=== PATIENT | male | born 1950 | race Caucasian/White ===

== ENCOUNTER 2017-01-08 12:03 | Emergency (ER) | payer OTHER, MEDICARE ==
[2017-01-08 12:25] VITALS: BMI 25.8
--- NOTE | 2017-01-08 13:20 | PDOC ---
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 HE states that he noticed all these symptoms begin around the same time ago without inciting event. He has been to his PCP a few weeks ago and has been prescribed a steroid taper for his COPD. He describes the chest pain as a 6-10 non radiating left sided blackman worse with cough but not worse with deep inspiration and does not co-present with SOB , diaphoresis, nausea, or vomiting. He had a non-ischemic dobutamine stress on . 01/08/17 13:53 Past History - Past Medical History Allergies/Adverse Reactions: Allergies Allergy/AdvReac Type Severity Reaction Status Date / Time No Known Allergies Allergy Verified 01/08/17 12:20 Home Medications: Ambulatory Orders Aspirin [ASA -] 81 mg PO DAILY 01/08/17 Atorvastatin Ca [Lipitor] 40 mg PO HS 01/08/17 Ferrous Sulfate 325 mg PO BID 01/08/17 Ipratropium/Albuterol Sulfate [Combivent Respimat Inhal [place]] 4 gm IH BID 01/08 Loratadine 10 mg PO DAILY 01/08/17 Methadone [Dolophine -] 185 mg PO DAILY 01/08/17 Methimazole 5 mg PO DAILY 01/08/17 Montelukast Na [Singulair -] 10 mg PO HS 01/08/17 Multivit-Min/FA/Lycopen/Lutein [Centrum Silver Tablet] 1 each PO DAILY 01/08/17 Omeprazole 20 mg PO DAILY 01/08/17 Prednisone 5 mg PO DAILY 01/08/17 Thyroid Disease: Yes (OVER-ACTIVE) - Psycho/Social/Smoking Cessation Hx Suicidal Ideation: No Smoking History: Current every day smoker Have you smoked in the past 12 months: Yes Number of Cigarettes Smoked Daily: 20 Information on smoking cessation initiated: No Review of Systems - Review of Systems Constitutional: Yes: Weakness. No: Chills, Diaphoresis, Fever, Loss of Appetite , Night Sweats HEENTM: Yes: Blurred Vision. No: Eye Pain, Double Vision Respiratory: Yes: Cough, Shortness of Breath, SOB with Exertion. No: Orthopnea , Wheezing, Productive cough, Hemoptysis Cardiac (ROS): Yes: Chest Pain, Lightheadedness. No: Edema ABD/GI: No: Constipated, Diarrhea, Nausea, Vomiting : No: Dysuria, Discharge, Frequency Musculoskeletal: Yes: Muscle Weakness. No: Back Pain, Joint Pain, Joint Swelling, Muscle Pain *Physical Exam - Vital Signs Last Vital Signs Temp Pulse Resp BP Pulse Ox 98 F 81 18 110/79 95 01/08/17 12:21 01/08/17 12:57 01/08/17 12:57 01/08/17 12:57 01/08/17 12:57 - Physical Exam General Appearance: Yes: Nourished, Appropriately Dressed, Other (Appears overall slightly lethargic and slightly disarthric). No: Apparent Distress HEENT: positive: EOMI, OVIDIO (Eyes low but able to open per neuro exam below.), Normal ENT Inspection, Pharynx Normal. negative: Normal Voice (Some speech difficulty) Neck: positive: Trachea midline, Normal Thyroid, Supple. negative: Tender, Rigid Respiratory/Chest: positive: Lungs Clear, Other (Slow respiratory rate at 8-11 breaths per minute). negative: Chest Tender, Normal Breath Sounds (Delayed expiratory phase with some transmitted upper airway sounds. ), Respiratory Distress, Accessory Muscle Use Cardiovascular: positive: Regular Rhythm, Regular Rate, S1, S2. negative: Edema , JVD, Murmur, Bradycardia, Tachycardia Gastrointestinal/Abdominal: positive: Normal Bowel Sounds, Flat, Soft, Pulsatile Mass. negative: Tender, Organomegaly Integumentary: positive: Normal Color, Dry, Warm, Other (No rashes or bug bites on skin) Neurologic: positive: clinical partner II-XII NML intact, Fully Oriented, Alert (somnolent but very easily arrousable to voice and touch). negative: Motor Strength 5/5 ( Bilateral lower extremity weakness 3/5 with 5/5 upper extremity strength and lack of focal defictis.) ED Treatment Course - LABORATORY CBC & Chemistry Diagram: 01/08/17 14:15 01/08/17 14:15 Medical Decision Making - Medical Decision Making 66 year old male with nonspecific general complaints for the past three weeks including central burning non-radiating chest pain with a clean stress test on . His EKG demonstrated some left fascicular block that is most likely old given read of inferior fixed wall motion abnormalities on previous stress but no signs of active ischemia on this visit on either of the two EKGs taken one hour apart. Furthermore VSS, all labs WNL, with negative Troponin and chest pain resolved so will send home with follow up tomorrow with Dr. Carmona. I beleive that his overall lethargy is caused by his large daily methadone dose. Less likely is guillane-barre or ixodotoxin Possibly rheumatolgic or neurodegenerative disorder because of lack of history of hyperthyroidism and slow onset but workup is deferred to outpatient. Per phone call with Dr. Carmona, he is OK with seeing patient tomorrow in clinic as long as no acute event here in the ED. 01/08/17 15:13 01/08/17 15:23 *DC/Admit/Observation/Transfer Diagnosis at time of Disposition: Chest pain - Discharge Dispostion Disposition: HOME Condition at time of disposition: Improved Admit: No - Referrals Referrals: Mainor Carmona MD [Primary Care Provider] - - Patient Instructions Printed Discharge Instructions: DI for Chest Pain Additional Instructions: You were seen for chest pain and many other symptoms. We believe that this is most likely all due to a mixture of your COPD and large methadone dosage. We suggest that you see your PCP tomorrow and discuss your problems with him. We also believe that you should discuss lowering your methadone dose with your PCP and methadone clinic. Please return to the ED if you notice severe chest pain, shortness of breath, nausea, vomiting, diarrhea, or other new symptoms. - Attestations Physician Attestion: 01/08/17 15:30 I, Dr. Albert Fan, attest that this document has been prepared under my direction and personally reviewed by me in its entirety. I further attest, that it accurately reflects all work, treatment, procedures and medical decision -making performed by me.
[2017-01-08 14:28] LABS: EOSINOPHIL 1.2 % (0-4.5); MEAN CELL VOLUME 93.9 fl (80-96); MEAN PLT VOLUME 7.4 fl (7.5-11.1); NEUTROPHILS 61.4 % (42.8-82.8); PLATELET COUNT 274 K/MM3 (134-434); RDW 18.1 % (11.9-15.9); WHITE BLOOD COUNT 8.5 K/mm3 (4.0-10.0)
[2017-01-08 14:53] LABS: ALBUMIN 3.5 g/dl (3.4-5.0); ALK PHOS 94 U/L (45-117); ANION GAP 10 (8-16); BILIRUBIN,TOTAL 0.6 mg/dL (0.2-1.0); CALCIUM 9.5 mg/dL (8.5-10.1); CO2 31 mmol/L (21-32); CREATININE 0.8 mg/dL (0.7-1.3); GLUCOSE,RANDOM 81 mg/dL (74-106); SGOT/AST 16 U/L (15-37); SGPT/ALT 20 U/L (12-78); TOT PROT 7.1 g/dl (6.4-8.2)
[2017-01-08 14:55] LABS: TROPONIN I < 0.02 ng/ml (0.00-0.05)
--- NOTE | 2017-01-08 15:02 | PDOC ---
Attending Attestation - Resident Resident Name: Albert Fan - ED Attending Attestation I have performed the following: I have examined & evaluated the patient, The case was reviewed & discussed with the resident, I agree w/resident's findings & plan, Exceptions are as noted - HPI HPI: 01/08/17 15:00 Agree with the resident's HPI as documented in the electronic medical record. - Physicial Exam PE: 01/08/17 15:00 Agree with the resident's physical examination as documented in the electronic medical record. - Medical Decision Making 01/08/17 15:00 66-year-old male with history of GERD, COPD, hyperlipidemia and asked IVDA on methadone presents the emergency Department with complaints of burning midsternal chest pain that has resolved. The patient has a history of chest pain in the past and had a normal perfusion scan last year. Differential diagnosis includes but is not limited to: GERD, atypical presentation of ACS, COPD, pneumothorax, pneumonia. Plan: 1. EKG 2. Chest x-ray 3. Labs 4. Observe and reevaluate
--- NOTE | 2017-01-08 15:38 | EKG ---
Test Reason : Blood Pressure : / mmHG Vent. Rate : 068 BPM Atrial Rate : 068 BPM P-R Int : 144 ms QRS Dur : 084 ms QT Int : 416 ms P-R-T Axes : 038 -65 017 degrees QTc Int : 442 ms NORMAL SINUS RHYTHM LEFT ANTERIOR FASCICULAR BLOCK ABNORMAL ECG WHEN COMPARED WITH ECG OF 08-JAN-2017 12:12, NONSPECIFIC T WAVE ABNORMALITY NO LONGER EVIDENT IN LATERAL LEADS Confirmed by CRISTINA ROSALES, JESSICA ([id number]) on 01/08/2017 3:38:02 PM Referred By: Confirmed By:JESSICA EVANS MD
--- NOTE | 2017-01-08 15:38 | EKG ---
Test Reason : Blood Pressure : / mmHG Vent. Rate : 095 BPM Atrial Rate : 095 BPM P-R Int : 140 ms QRS Dur : 082 ms QT Int : 386 ms P-R-T Axes : 056 -72 035 degrees QTc Int : 485 ms NORMAL SINUS RHYTHM BIATRIAL ENLARGEMENT LEFT ANTERIOR FASCICULAR BLOCK NONSPECIFIC T WAVE ABNORMALITY ABNORMAL ECG WHEN COMPARED WITH ECG OF 25-JUL-2007 02:47, OR INTERVAL HAS INCREASED QT HAS LENGTHENED Confirmed by JESSICA EVANS MD ([id number]) on 01/08/2017 3:37:51 PM Referred By: Confirmed By:JESSICA EVANS MD
[2017-01-08 16:12] VITALS: BP 123/74; PULSE 89; TEMP 98.4
== END 2017-01-08 16:13 | disposition home or self-care (01) ==
LOC: JER 12:03
DX: R07.89 Other chest pain (principal); E78.5 Hyperlipidemia, unspecified; K21.9 Gastro-esophageal reflux disease without esophagitis; J44.9 Chronic obstructive pulmonary disease, unspecified; E05.80 Other thyrotoxicosis without thyrotoxic crisis or storm; F11.20 Opioid dependence, uncomplicated
CPT/HCPCS: 36415; 71010-TC; 80053; 82550; 84484; 85025; 93005; 93010; 99284-25

== ENCOUNTER 2017-03-18 10:34 | Inpatient (IN) | payer OTHER, BC, MEDICARE ==
[2017-03-18 10:49] VITALS: BMI 25.8
--- NOTE | 2017-03-18 11:09 | PDOC ---
History of Present Illness - General Chief Complaint: Weakness Stated Complaint: Weakness Time Seen by Provider: 03/18/17 10:56 - History of Present Illness Initial Comments: 03/18/17 11:39 Patient is a 66-year-old male with past medical history of HTN, HLD, COPD, GERD who presents to the emergency department today complaining of dizziness, weakness, headache. Patient states that his symptoms started approximately 1 week ago. He has progressively gotten weaker over the past week. He states that he can no longer walk because of the weakness and that he lives alone. He states that he feels like his vision has changed. Denies fevers, chills ROM a cough, chest pain, shortness of breath, nausea, vomiting, diarrhea, frequency, urgency, dysuria. NIH Stroke Scale - Last Known Well Date/Time & Onset Date Last Known Well: 03/13/17 Time Last Known Well: 08:00 - Initial Evaluation Level of consciousness: Alert Ask patient the month and their age: Answers both correctly Ask patient to open & close eyes; make fist and let go: Obeys both correctly Best gaze (horizontal eye movement): Normal Visual field testing: No visual field loss Facial paresis (Show teeth/raise eyebrows/close eyes tight): Normal symmetrical movement Motor Function: Left Arm: Normal Motor Function: Right Arm: Normal (extends arm 90 (or 45) degrees for 10 seconds without drift Motor Function: Left Leg: Normal (extends leg 30 degrees for 5 seconds without drift) Motor Function: Right Leg: Normal (extends leg 30 degrees for 5 seconds without drift) Limb Ataxia: No ataxia Sensory(Use pinprick test arms,legs,trunk,face/side to side): Normal Best language (Describe picture, name items, read sentences): No Aphasia Dysarthria (read several words): Mild to moderate slurring of words Extinction and Inattention: No abnormality - Total Score NIH Stroke Scale Score: 1 Past History - Travel Traveled outside of the country in the last 30 days: No Close contact w/someone who was outside of country & ill: No - Past Medical History Allergies/Adverse Reactions: Allergies Allergy/AdvReac Type Severity Reaction Status Date / Time No Known Allergies Allergy Verified 03/18/17 10:44 Home Medications: Ambulatory Orders Aspirin [ASA -] 81 mg PO DAILY 01/08/17 Atorvastatin Ca [Lipitor] 40 mg PO HS 01/08/17 Loratadine 10 mg PO DAILY 01/08/17 Methadone [Dolophine -] 165 mg PO DAILY 01/08/17 Methimazole 5 mg PO DAILY 01/08/17 Montelukast Na [Singulair -] 10 mg PO HS 01/08/17 Omeprazole 20 mg PO DAILY 01/08/17 Thyroid Disease: Yes (OVER-ACTIVE) - Suicide/Smoking/Psychosocial Hx Smoking History: Current every day smoker Have you smoked in the past 12 months: Yes Number of Cigarettes Smoked Daily: 10 Information on smoking cessation initiated: No Hx Alcohol Use: No Drug/Substance Use Hx: No Review of Systems - Review of Systems Able to Perform ROS?: Yes Comments:: 03/18/17 11:42 CONSTITUTIONAL: Present: generalized weakness Absent: fever, chills, diaphoresis, malaise, loss of appetite HEENT: Absent: rhinorrhea, nasal congestion, throat pain, throat swelling, difficulty swallowing, mouth swelling, ear pain, eye pain, visual Changes CARDIOVASCULAR: Absent: chest pain, loss of consciousness, palpitations, irregular heart rate, peripheral edema RESPIRATORY: Absent: cough, shortness of breath, dyspnea with exertion, orthopnea, wheezing, stridor, hemoptysis GASTROINTESTINAL: Absent: abdominal pain, abdominal distension, nausea, vomiting, diarrhea, constipation, melena, hematochezia GENITOURINARY: Absent: dysuria, frequency, urgency, hesitancy, hematuria, flank pain, genital pain MUSCULOSKELETAL: Absent: myalgia, arthralgia, joint swelling SKIN: Absent: rash, itching, pallor HEMATOLOGIC/IMMUNOLOGIC: Absent: easy bleeding, easy bruising, lymphadenopathy, frequent infections ENDOCRINE: Absent: unexplained weight gain, unexplained weight loss, heat intolerance, cold intolerance NEUROLOGIC: Present: headache, unsteady gait, dizziness Absent:focal weakness or paresthesias, seizure, mental status changes, bladder or bowel incontinence PSYCHIATRIC: Absent: anxiety, depression, suicidal or homicidal ideation, hallucinations. Is the patient limited Mexican proficient: No *Physical Exam - Vital Signs Last Vital Signs Temp Pulse Resp BP Pulse Ox 98.0 F 79 20 125/86 94 L 03/18/17 10:44 03/18/17 10:44 03/18/17 10:44 03/18/17 10:44 03/18/17 10:44 - Physical Exam Comments: 03/18/17 11:46 GENERAL: Well developed, well nourished. Awake and alert. mild distress, too weak to sit up in the bed HEENT: Normocephalic, atraumatic. PERRLA, EOMI. No conjunctival pallor. Sclera are non- icteric. Moist mucous membranes. Oropharynx is clear. NECK: Supple. Full ROM. No JVD. Carotid pulses 2+ and symmetric, without bruits. No thyromegaly. No lymphadenopathy. CARDIOVASCULAR: Regular rate and rhythm. No murmurs, rubs, or gallops. Distal pulses are 2+ and symmetric. PULMONARY: No evidence of respiratory distress. Lungs with wheezing bilaterally. No rales or rhonchi. Fair aeration to the bases ABDOMINAL: Soft. Non-tender. Non-distended. No rebound or guarding. No organomegaly. Normoactive bowel sounds. MUSCULOSKELETAL Normal range of motion at all joints. No bony deformities or tenderness. No CVA tenderness. EXTREMITIES: No cyanosis. No clubbing. No edema. No calf tenderness. SKIN: Warm and dry. Normal capillary refill. No rashes. No jaundice. NEUROLOGICAL: Alert, awake, appropriate. Cranial nerves 2-12 intact. No deficits to light touch and temperature in face, upper extremities and lower extremities. No motor deficits in the in face, upper extremities and lower extremities. Normoreflexic in the upper and lower extremities. Slurred speech. Toes are down- going bilaterally. Gait is unable to be observed as pt. states he is too weak to walk. PSYCHIATRIC: Cooperative. Good eye contact. Appropriate mood and affect. ED Treatment Course - LABORATORY CBC & Chemistry Diagram: 03/18/17 11:17 03/18/17 11:17 Medical Decision Making - Medical Decision Making 03/18/17 11:51 Patient is a 66-year-old male with past medical history of HTN, HLD, COPD, GERD who presents to the emergency department today complaining of dizziness, weakness, headache for one week. Differential diagnosis include stroke, ACS, pneumonia, COPD exacerbation, sepsis. Given patient's smaller and generalized overall weakness with headache and reported visual changes higher suspicion for stroke. We'll obtain CT of the head. Patient is well outside the window for TPA as he is had the symptoms for over a week. 1.CBC, CMP, PT/INR, cardiac labs, UA, UC, BMP, mag, Roberts, thyroid 2.head CT, chest x-ray, EKG 3.IV fluids 4.reevaluate 03/18/17 12:[address] shows: Focal likely indeterminate infarct in the right cerebellum, inferiorly with question of infarct in the right occipital lobe which further evaluation with MRI of the brain is recommended. Focal encephalomalacia/infarct in the right cerebellum, superiorly with an old lacunar infarct in the right basal ganglia, anteriorly. Most likely a acute/subacute infarct of the right occipital lobe. We'll consult with Dr. Jones patient's PCP for admission. Lab work is unremarkable. There is no leukocytosis, electrolytes within normal limits. Troponin is less than 0.02. Chest x-ray shows potential lymph nodes in the right hilar region of the chest x -ray. Radiology is recommending chest x-ray at this time for further evaluation. EKG remains unchanged from old. Anterior fascicular block with a rate of 69 bpm intervals are normal no acute ST-T wave changes. 03/18/17 13:[address] Jones. We will admit the patient for CVA. Dr. Paulson. Waiting for call back from Dr. Paulson. Consult with with Dr. Torres neurology he is aware of the patient. Will place orders for MRA of the brain and neck to further evaluate the stroke. 03/18/17 14:12 second patient page to Dr. Paulson 03/18/17 14:[address] Paulson. Case was discussed and he accepts patient for admission to the stroke floor. *DC/Admit/Observation/Transfer Diagnosis at time of Disposition: CVA (cerebral vascular accident) Qualifiers: CVA mechanism: unspecified Qualified Code(s): I63.9 - Cerebral infarction, unspecified - Discharge Dispostion Disposition: HOME Condition at time of disposition: Good Admit: Yes
[2017-03-18] MEDS ORDERED: SODIUM CHLORIDE 1,000 ML IV STA (11:10)
[2017-03-18 11:47] LABS: INR 1.07 (0.82-1.09); PROTHROMBIN TIME (PATIENT) 11.8 SEC (9.98-11.88)
[2017-03-18 12:00] LABS: ALBUMIN 3.2 g/dl (3.4-5.0); ANION GAP 4 (8-16); BILIRUBIN,TOTAL 0.7 mg/dL (0.2-1.0); CALCIUM 9.1 mg/dL (8.5-10.1); CO2 30 mmol/L (21-32); CREATININE 0.7 mg/dL (0.7-1.3); GLUCOSE,RANDOM 92 mg/dL (74-106); MAGNESIUM 2.2 mg/dL (1.8-2.4); SGOT/AST 14 U/L (15-37); SGPT/ALT 19 U/L (12-78); TOT PROT 6.8 g/dl (6.4-8.2)
[2017-03-18 12:01] LABS: PHOSPHOROUS 3.6 mg/dL (2.5-4.9)
[2017-03-18 12:03] LABS: ALK PHOS 96 U/L (45-117)
[2017-03-18 12:10] LABS: THYROID STIMULATING HORMONE 0.7 uIU/ml (0.358-3.74)
[2017-03-18 12:16] LABS: CPK 50 IU/L (39-308); TROPONIN I < 0.02 ng/ml (0.00-0.05)
--- NOTE | 2017-03-18 12:39 | PDOC ---
*Physical Exam - Vital Signs Last Vital Signs Temp Pulse Resp BP Pulse Ox 98.0 F 70 20 128/77 95 03/18/17 10:44 03/18/17 11:36 03/18/17 10:44 03/18/17 11:36 03/18/17 10:56 ED Treatment Course - LABORATORY CBC & Chemistry Diagram: 03/18/17 11:17 03/18/17 11:17 - ADDITIONAL ORDERS Additional order review: Laboratory Results 03/18/17 03/18/17 03/18/17 11:17 11:17 11:17 PT with INR INR Sodium 138 Potassium 4.1 Chloride 104 Carbon Dioxide 30 Anion Gap 4 L BUN 10 D Creatinine 0.7 Creat Clearance w eGFR > 60 Random Glucose 92 Calcium 9.1 Phosphorus 3.6 Magnesium 2.2 Total Bilirubin 0.7 AST 14 L ALT 19 Alkaline Phosphatase 96 Creatine Kinase Cancelled 50 Troponin I Cancelled < 0.02 B-Natriuretic Peptide 64.41 Total Protein 6.8 Albumin 3.2 L TSH 0.70 03/18/17 11:17 PT with INR 11.80 INR 1.07 Sodium Potassium Chloride Carbon Dioxide Anion Gap BUN Creatinine Creat Clearance w eGFR Random Glucose Calcium Phosphorus Magnesium Total Bilirubin AST ALT Alkaline Phosphatase Creatine Kinase Troponin I B-Natriuretic Peptide Total Protein Albumin TSH - Medications Given in the ED: ED Medications Discontinued Medications Generic Name Dose Route Start Last Admin Trade Name Freq PRN Reason Stop Dose Admin Sodium Chloride 1,000 mls @ 1,000 mls/hr 03/18/17 11:10 03/18/17 11:31 Normal Saline - IV 03/18/17 12:09 1,000 mls/hr ASDIR STA Administration Medical Decision Making - Medical Decision Making 03/18/17 12:39 Pt seen by the Advanced Practice Provider under my direct supervision Ancillary studies reviewed I agree with plan as outlined by the Advanced Practice Provider
[2017-03-18 12:52] LABS: BASOPHIL 1.1 % (0-2.0); EOSINOPHIL 4.6 % (0-4.5); MCH 31.5 pg (25.7-33.7); MCHC 33.3 g/dl (32.0-35.9); MEAN CELL VOLUME 94.6 fl (80-96); MEAN PLT VOLUME 7.8 fl (7.5-11.1); NEUTROPHILS 58.1 % (42.8-82.8); PLATELET COUNT 253 K/MM3 (134-434); WHITE BLOOD COUNT 7.5 K/mm3 (4.0-10.0)
--- NOTE | 2017-03-18 13:04 | EKG ---
Test Reason : Blood Pressure : / mmHG Vent. Rate : 069 BPM Atrial Rate : 069 BPM P-R Int : 148 ms QRS Dur : 084 ms QT Int : 418 ms P-R-T Axes : 034 -56 008 degrees QTc Int : 447 ms POOR DATA QUALITY, INTERPRETATION MAY BE ADVERSELY AFFECTED NORMAL SINUS RHYTHM LOW VOLTAGE QRS LEFT ANTERIOR FASCICULAR BLOCK NONSPECIFIC T WAVE ABNORMALITY ABNORMAL ECG WHEN COMPARED WITH ECG OF 08-JAN-2017 14:09, NO SIGNIFICANT CHANGE WAS FOUND Confirmed by KEYANNA DENIS MD ([id number]) on 03/18/2017 1:03:59 PM Referred By: Confirmed By:KEYANNA DENIS MD
[2017-03-18] MEDS ORDERED: FLU VACCINE QUAD 60 MCG/0.5 ML (MDV 17-18) IM ONE (16:42)
[2017-03-18] MEDS ORDERED: ACETAMINOPHEN 325 MG TABLET (FP) PO PRN (17:18)
[2017-03-18 20:53] LABS: URINE APPEARANCE CLEAR; URINE BILIRUBIN NEGATIVE (NEGATIVE); URINE BLOOD NEGATIVE (NEGATIVE); URINE COLOR YELLOW; URINE GLUCOSE (UA) NEGATIVE (NEGATIVE); URINE KETONE NEGATIVE (NEGATIVE); URINE LEUK ESTERASE TRACE (NEGATIVE); URINE NITRITE NEGATIVE (NEGATIVE); URINE PROTEIN NEGATIVE (NEGATIVE)
[2017-03-18 21:07] LABS: URINE MUCUS RARE; URINE WBC 1 /hpf (3-5)
[2017-03-18] MEDS: ATORVASTATIN CA 10 MG TABLET (FP) PO SCH (22:53)
[2017-03-18] MEDS: MONTELUKAST NA 10 MG TABLET PO SCH (22:53)
[2017-03-19] MEDS ORDERED: PT OWN MED DRAWER 7, Y5N ONE (00:27)
[2017-03-19 07:22] LABS: MCH 31.5 pg (25.7-33.7); MCHC 33.1 g/dl (32.0-35.9); MEAN CELL VOLUME 95.2 fl (80-96); MEAN PLT VOLUME 7.7 fl (7.5-11.1); PLATELET COUNT 245 K/MM3 (134-434); RDW 14.6 % (11.9-15.9); WHITE BLOOD COUNT 7.3 K/mm3 (4.0-10.0)
--- NOTE | 2017-03-19 07:24 | PN ---
Progress Note (short form) - Note Progress Note: NEUROSURGERY CONSULT DICTATED Pt examined Chart reviewed History obtained Mild H/A and nausea with visual blurring x 1 week; worsening difficulty with walking and subjective weakaness PE: AF, VSS HEENT- NC/AT; Neck- supple; Cor- RRR; Lungs- CTA; Abd- benign; Ext- no sign of DVT A/A/Ox3 CN- intact II-XII; Motor-4+-5/5 B UE and LE without drift; Sensation- intact LT ; DTR-1+; Cerebellar- int mild tremor at rest Gait- deferred INR 1.07; BUN 10, CR 0.[address] 10-4: moderate to marked periventricular hypodensity, R > L cerebellum hypodensity Brain MRA: no aneurysm, no significant stenosis Brain MRA automatic pilot mechanic axial contrast images- no gross enhancing mass Probable cereberovascular dz with subacute-chronic ischemia Recommend brain MRI with diffusion images to r/o ischemia Neurology for eval and tx No role of neurosurgical intervention at this time
--- NOTE | 2017-03-19 08:22 | CONS ---
DATE OF CONSULTATION: 03/19/2017 CHIEF COMPLAINT: Headache, nausea, and worsening ataxia with weakness of 1-week duration. REQUESTING PHYSICIAN: Duy Paulson MD HISTORY OF PRESENT ILLNESS: The patient is a 66-year-old male with history of hypertension, hypercholesterolemia, COPD, gastroesophageal reflux disease, who complained of generalized weakness and headache for 1 week. He denies prior symptoms. He has some nausea but no vomiting. He also stated that he has some blurry vision. He denies fever, chills, or recent infections. He has no history of system malignancy. He generally lives alone. He stated that his ability to walk has deteriorated significantly over the past week. PAST MEDICAL HISTORY: Significant for hypertension, hypercholesterolemia, COPD , and gastroesophageal reflux disease. CURRENT MEDICATIONS: Include Tylenol, Tapazole, Lipitor, Singulair, Ecotrin, methadone, and Protonix. ALLERGIES: There are no known drug allergies. FAMILY HISTORY: Noncontributory. SOCIAL HISTORY: He used to have a history with substance dependence. He is a smoker. He lives alone. REVIEW OF SYSTEMS: Otherwise negative for other major constitutional, cardiovascular, pulmonary, gastrointestinal, genitourinary, endocrinologic, neurological, or psychological problems except for the above. PHYSICAL EXAMINATION: Vital Signs: Temperature is 98.9, blood pressure is 125/65, pulse rate of 65, O2 saturation is 98% on room air. HEENT: Shows him to be normocephalic, atraumatic, anicteric. Neck: Supple with no carotid bruit. Coronary: Demonstrates a regular rhythm. Lungs: Clear bilaterally. Abdomen: Benign. Extremities: Showed no obvious signs of DVT. Distal pulses are 1+. Neurologic: He is awake, alert, and oriented x3. Cranial nerve examination is intact II-XII. Motor examination shows 4+/5/5 strength without a drift. Sensory examination is intact to light touch. Deep tendon reflexes are 1+. Gait was not tested for safety reasons. Cerebellar examination demonstrated intermittent mild tremor at baseline. There is no intentional tremor. LABORATORY: Shows sodium to be 138, potassium to be 4.1, BUN is 10, creatinine is 0.7. LFTs are normal. Albumin is slightly decreased at 3.2. INR is 1.07. White blood cell count is 7.5, hemoglobin is 14.1, and platelet count is 253,000. Urinalysis shows 1 WBC. Urine culture is pending. CT scan of the head done on March 18 demonstrated moderate bilateral periventricular hypodensity. There is also hypodensity of right greater than left cerebellum. There is a small lacunar infarct in the right basal ganglia anteriorly. MRA of the head does not demonstrate significant aneurysm or intracranial vascular stenosis. The pilot plant operator helper MRA contrast images do not demonstrate significant mass lesion. IMPRESSION: 1. Probable cerebrovascular disease, subacute and chronic. 2. Hypertension. 3. Hypercholesterolemia. 4. Chronic obstructive pulmonary disease. RECOMMENDATIONS: The patient presents with a 1-week history of progressive subjective weakness and difficulty with ambulation. He also has a bad headache with some nausea. The symptoms are consistent with cerebrovascular disease. The pilot plant operator helper images of the MRI with contrast did not demonstrate significant mass lesion. However, a dedicated MRI of the brain is recommended to rule out acute ischemia. Diffusion images should be included. Neurology input is also recommended to assess the patient's neurological condition and future treatment course. At this point , no neurosurgical intervention is indicated nor recommended. Neurology input and followup for stroke management is recommended. The above was discussed with the patient at bedside and he expresses understanding. All questions were answered. RENITA OLIVIA M.D. [id number]
[2017-03-19 08:26] LABS: ALBUMIN 2.9 g/dl (3.4-5.0); ALK PHOS 97 U/L (45-117); ANION GAP 8 (8-16); BILIRUBIN,TOTAL 0.6 mg/dL (0.2-1.0); CALCIUM 8.4 mg/dL (8.5-10.1); CHOLESTEROL 149 mg/dL (50-200); CO2 29 mmol/L (21-32); CREATININE 0.7 mg/dL (0.7-1.3); GLUCOSE,RANDOM 93 mg/dL (74-106); SGOT/AST 19 U/L (15-37); SGPT/ALT 19 U/L (12-78); THYROID STIMULATING HORMONE 0.66 uIU/ml (0.358-3.74); TOT PROT 6.3 g/dl (6.4-8.2)
--- NOTE | 2017-03-19 09:11 | CONSULT ---
Consult - text type - Consultation Consultation Note: NEUROLOGY CONSULTATION is greatly appreciated: This 66 yo RH single man lives alone. No family. He pays "a friend" to shop for her. PMH of HTN, Chol, hyperthyroidism, GERD, IVDA. Maintained on atorvastatin, ASA, loratadine, methimazole, methadone, montelukast , omeprazole. About one week ago Pt noted deterioration of gait and "walking like a drunk." Around the same time he noticed he couldn't put the rod in the front door with his right hand. Dull right occipetal headache x 1 week Weakness progressed over the next week and he fell in the bathroom on the day [employer]. CT of head (reviewed): Old right, deep, cerebellar infarct. Old Right internal capsule infarct. Old right occipetal infarct. MR Angio (MRI not done): No large vessel disease. JAZZY: Neck supple. No bruits. Cor Reg. NEURO: Mildly Confused. Dysarthric speech Few beats conjugate Nystagmus on Right gaze. No facial weakness. Rapid tongue mov'ts and gag are reduced. No drift. Normal strength. Diffusely reduced reflexes. Downgoing toes. Reduced VILMA's R>>L + R FTN; ++R HTS dystaxia Reduced vibration in both feet. Falls to right in seated position. IMP: Subacute Right cerebellar infarct (deep). R/O brainstem ischemia. Can worsen in first 72 hrs due to edema. Underlying cerebrovascular disease and, possibly, some OMS. Suggest: MRI of brain. Carotid duplex dopplers. Continue telemetry (although CT suggests intrinsic rather than embolic disease). Check B12, CK (CPK), RPR, ESR, CRP, Ammonia level PM&R evaluation and PT as directed. legal services manager evaluation and Rehab placement (Khan evaluation). Cardiology consultation, echocardiogram. Clopidogrel 75 mg PO unless arrhythmia is found. Thank you very much. Joe Torres MD
[2017-03-19] MEDS: METHIMAZOLE 10 MG TABLET (FP) PO SCH (09:21)
[2017-03-19] MEDS: ASPIRIN COATED 81 MG TABLET.EC PO SCH (09:21)
[2017-03-19] MEDS: PANTOPRAZOLE 40 MG TABLET (FP) PO SCH (09:21)
[2017-03-19] MEDS ORDERED: FLU VACCINE QUAD 60 MCG/0.5 ML (MDV 17-18) IM ONE (09:30)
[2017-03-19] MEDS ORDERED: METHADONE HCL 5 MG TABLET (FOR DETOX USE ONLY) PO SCH (10:00)
--- NOTE | 2017-03-19 10:15 | CONSULT ---
Admitting History and Physical - Primary Care Physician PCP: Duy Paulson - Admission History of Present Illness: Mild H/A and nausea with visual blurring x 1 week; worsening difficulty with walking and subjective weakness. Per Neurology: Subacute Right cerebellar infarct (deep). R/O brainstem ischemia. Can worsen in first 72 hrs due to edema. Underlying cerebrovascular disease and, possibly, some OMS. Pt reports upper and lower extremity weakness, "getting worse and worse over last 2 weeks." PT reports right extremities weaker than left. History Source: Patient, Medical Record Limitations to Obtaining History: Clinical Condition - Smoking History Smoking history: Current every day smoker Have you smoked in the past 12 months: Yes Aproximately how many cigarettes per day: 10 - Alcohol/Substance Use Hx Alcohol Use: No History - Admission Reason For Visit: CVA - Diagnostics X-ray: Report Reviewed CT Scan: Report Reviewed (moderate to marked periventricular hypodensity, R > L cerebellum hypodensity) MRI: Pending - General Mental Status: Alert and Oriented, Awake and Alert, Able to Follow Commands Attention: Intact Ability to Follow Directions: Excellent Head/Neck Control: WFL - Hearing Hearing: Functional Speech Evaluation - Communication Primary Language: ARABIC Communication: Yes: Dysarthria Oral Expression Ability: Yes: Mild Impairment - Speech Production Able to Make Needs Known: Yes: Mildly Impaired Intelligibility: Yes: Mildly Impaired - Speech Characteristics Voice Loudness: Mildly Soft/Quiet Voice Pitch: Yes: Normal Voice Phonatory-based Quality: Yes: Normal Speech Clarity: < 100% Nasal Resonance: Normal Articulation: Yes: Imprecise Rate of Speech: Too Slow - Language/Auditory Comprehension Follows: Yes: 2 Stage Simple Commands - Language/Verbal Expression Able to Respond to Simple Queries: Yes: WNL Able to Communicate Wants and Needs: Yes: WNL Functional Communication Status: Yes: WNL - Swallow Evaluation/Bedside Assessment Current Nutritional Intake: Dysphagia Pureed, [place] Textured Liquids Oral Secretions: Yes: WFL Dentition: Yes: Edentulous Facial Symmetry at Rest: Symmetrical Facial Symmetry on Retraction: Symmetrical Pucker Lips: Weak Smile: Weak Lingual Movement: Symmetric Lingual Speed of Movement: Reduced Lingual Movement Strgth Against Opposition: Reduced Lingual Movement Characteristics: Normal (No fascilculation observed) Laryngeal Elevation: Impaired Laryngeal Movement: Reduced Excursion, Labored,delay initiation Labial Seal: WFL Chewing: Impaired Oral Prep Time: WFL A-P Transit: WFL Pocketing: None Timing of Swallow: Delayed Coughing/Throat Clear: Yes (throat clear with thin liquid) Change in Voice: No Recommendations - Speech Evaluation, Impression/Plan Impression: Mild dysarthria with reduced VOM and strength of articulatary movement. Symmetric. No fasciculations appreciated.Throat clear with thin liquid , admits to some difficulty swallowing. Swallow is delayed in onset with reduced rate and excursion of laryngeal elevation. subacute Right cerebellar infarct (deep). R/O brainstem ischemia. Pt reports worsening of UE/LE strength over 2 weeks. - Dysphagia Impressions/Plan Dysphagia Impressions: Ongoing Evaluation *Silent aspiration: cannot be R/O at bedside Recommendations: Modified Barium Swallow - Recommendations Diet Consistency: Dysphagia Pureed Medication Administration: Crushed with applesauce Liquids: [place] Thick
--- NOTE | 2017-03-19 11:39 | HP ---
Admitting History and Physical - Primary Care Physician PCP: Duy Paulson - Admission History Source: Medical Record Limitations to Obtaining History: Poor Historian - Past Medical History BIG DATA LEAD: Yes: CVA Cardiovascular: Yes: HTN Pulmonary: Yes: COPD Musculoskeletal: Yes: Osteoarthritis - Smoking History Smoking history: Current every day smoker Have you smoked in the past 12 months: Yes Aproximately how many cigarettes per day: 10 - Alcohol/Substance Use Hx Alcohol Use: No Home Medications - Allergies Allergies/Adverse Reactions: Allergies Allergy/AdvReac Type Severity Reaction Status Date / Time No Known Allergies Allergy Verified 03/18/17 10:44 - Home Medications Home Medications: Ambulatory Orders Aspirin [ASA -] 81 mg PO DAILY 01/08/17 Atorvastatin Ca [Lipitor] 40 mg PO HS 01/08/17 Loratadine 10 mg PO DAILY 01/08/17 Methadone [Dolophine -] 165 mg PO DAILY 01/08/17 Methimazole 5 mg PO DAILY 01/08/17 Montelukast Na [Singulair -] 10 mg PO HS 01/08/17 Omeprazole 20 mg PO DAILY 01/08/17 Review of Systems - Review of Systems Constitutional: reports: Loss of Appetite Eyes: reports: No Symptoms HENT: reports: No Symptoms Neck: reports: No Symptoms Cardiovascular: reports: No Symptoms Respiratory: reports: No Symptoms Gastrointestinal: reports: No Symptoms Genitourinary: reports: No Symptoms Musculoskeletal: reports: Muscle Weakness Integumentary: reports: No Symptoms Neurological: reports: Pre-Existing Deficit, Weakness Endocrine: reports: No Symptoms Hematology/Lymphatic: reports: No Symptoms Psychiatric: reports: Other Physical Examination Vital Signs: Vital Signs Temperature 98 F 03/19/17 09:00 Pulse Rate 68 03/19/17 09:00 Respiratory Rate 18 03/19/17 09:00 Blood Pressure 130/79 03/19/17 09:00 O2 Sat by Pulse Oximetry (%) 98 03/18/17 16:32 Constitutional: Yes: Mild Distress Eyes: Yes: WNL HENT: Yes: WNL Neck: Yes: WNL Cardiovascular: Yes: WNL Respiratory: Yes: WNL Gastrointestinal: Yes: WNL Renal/: Yes: WNL Musculoskeletal: Yes: Muscle Weakness Extremities: Yes: WNL Edema: No Peripheral Pulses WNL: Yes Integumentary: Yes: WNL Wound/Incision: Yes: Clean/Dry Neurological: Yes: Pre-Existing Deficit, Unsteady Gait, Weakness ...Motor Strength: LLE, RLE Psychiatric: Yes: Other Labs: CBC, BMP 03/19/17 05:15 03/19/17 05:15 Imaging - Results Cat Scan: Report Reviewed Problem List - Problems (1) CVA (cerebral vascular accident) Code(s): I63.9 - CEREBRAL INFARCTION, UNSPECIFIED Qualifiers: CVA mechanism: unspecified Qualified Code(s): I63.9 - Cerebral infarction, unspecified; I63.9 - Cerebral infarction, unspecified; I63.9 - Cerebral infarction, unspecified; I63.9 - Cerebral infarction, unspecified (2) Chest pain Code(s): R07.9 - CHEST PAIN, UNSPECIFIED (3) Methadone maintenance therapy patient Code(s): F11.20 - OPIOID DEPENDENCE, UNCOMPLICATED (4) Hypertension Code(s): I10 - ESSENTIAL (PRIMARY) HYPERTENSION (5) Lipidemia Code(s): E78.5 - HYPERLIPIDEMIA, UNSPECIFIED Assessment/Plan lipid panel reviewed on statin and asa pt eval oob to chair methadone dependence therapy
[2017-03-19] MEDS: MONTELUKAST NA 10 MG TABLET PO SCH (21:25)
[2017-03-19] MEDS: ATORVASTATIN CA 10 MG TABLET (FP) PO SCH (21:25)
[2017-03-20] MEDS ORDERED: METHADONE HCL 40 MG DISPERSABLE TABLET ONE (06:35)
[2017-03-20] MEDS: METHADONE 160 MG, METHADONE 5 MG PO SCH (06:36)
[2017-03-20] MEDS ORDERED: METHADONE HCL 5 MG TABLET ONE (06:36)
[2017-03-20 08:03] LABS: CPK 75 IU/L (39-308); TROPONIN I < 0.02 ng/ml (0.00-0.05)
--- NOTE | 2017-03-20 08:34 | CONS ---
DATE OF CONSULTATION: 03/20/2017 REFERRING PHYSICIAN: Joe Torres MD HISTORY OF PRESENT ILLNESS: The patient is a 66-year-old man with past medical history of hypertension, COPD, gastroesophageal reflux disease, nerve damage in his lower extremities, as well as substance abuse, who was admitted with difficulty walking and progressive weakness. Patient states he fell at home and banged his head. He developed generalized weakness, headache, but it is unclear whether he was weak prior to the fall or just after the fall. Patient on admission underwent a CT of the head on March 18, 2017, which showed infarct of the right cerebellum and encephalomalacia and an old infarct also in the right cerebellum. Patient has undergone further imaging including MRA of the brain which showed no focal stenosis. MRA of the neck also showed no large vessel stenosis. Brain MRI is pending. Patient underwent neurologic evaluation as well as evaluation with Neurosurgery. Also a swallowing evaluation on March 19 with Krystal Parikh and a modified barium swallow was recommended, but currently dysphagia pureed, medications crushed with applesauce and nectar-thickened liquids was recommended. Patient also was seen by Physical Therapy, but only able to ambulate a few feet, perhaps 5 feet with at most side stepping. Also required min assist for transfers. Patient's most recently blood work, he had a normal CBC on admission, and a followup on March 19 was stable with WBCs 7.3, hemoglobin 13.8, platelet count 245. INR on admission normal 1.07. He has slightly low total protein at 6.3 and albumin 2.9. His calcium is low but corrects for his albumin. He has a slight elevation in hemoglobin A1c at 6.1, but chemistry was normal otherwise, with sodium on March 19 of 140, potassium 4.5, chloride 103, BUN 8, creatinine 0.7. TSH was normal at 0.66. He is pending a B12 level. Patient again is seen in rehabilitation evaluation. REVIEW OF PAST MEDICAL AND SURGICAL HISTORY: As above. Patient has a history of substance abuse, COPD, hypertension. May have a bad back. He relates some nerve damage in his feet, but he did not know what this was from. SOCIAL HISTORY: Patient lives alone in an apartment. He has about 12 steps to enter. Premorbidly he states he was independent, although he also states he was using a walker prior to admission. CURRENT FUNCTION: As above. REVIEW OF SYSTEMS: He does have a headache, but no different than previous headache. No lightheadedness, but he does get dizzy. No blurry vision, double vision, or change in vision. No nausea, vomiting. He may have a slight difficulty with swallowing. No chest pain. He does get short of breath, especially with any exertion. No abdominal discomfort. No bowel or bladder incontinence. Again he has numbness in the bottom of his feet, generalized weakness, but he notes the left side is weaker than the right side. No fever or chills. No generalized rash. No significant weight loss, weight gain. PHYSICAL EXAMINATION: General: Patient is a friendly elderly man seen lying in bed. He is in no acute distress. HEENT: Normocephalic and atraumatic. His extraocular muscles appear intact. He has no obvious of focal weakness of the face. No oral ulcers. Dry mucous membranes. Neck: Supple. Extremities: Without pitting edema or calf tenderness. Neuromuscular: He is awake, alert, and seems oriented x3. Cranial nerves appear grossly intact. 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 Shoulder girdle is 3+/5 on the left, 4/5 on right. He has antigravity strength in the left lower extremity, but he is weak in the right lower extremity, only 2/5 in the proximal hip girdle. Better knee flexion and extension and 5/5 dorsal and plantarflexion. Diminished sensation distally in the feet to light touch and pinprick, and depressed reflexes. Toes are neither upgoing nor downgoing. Unable to stand or ambulate him at this time. OVERALL IMPRESSION: 1. Deficits in mobility and activities of daily living. 2. Right cerebellar cerebrovascular accident. 3. Rule out dysphagia. 4. Rule out peripheral neuropathy possibly due to substance abuse such as alcohol versus other etiology, nutritional or diabetes. 5. Reported history of osteoarthritis, but no current joint arthralgias. 6. Deconditioning. 7. Chronic obstructive pulmonary disease. 8. History of substance abuse. 9. Gastroesophageal reflux disease. 10. History of hypertension. 11. Elevated risk for deep venous thrombosis due to immobility. 12. Elevated risk for skin breakdown due to poor nutrition and immobility. PLAN/SUGGESTIONS: 1. Continue physical therapy. 2. Out of bed to chair. 3. Agree with SCDs for DVT prophylaxis. 4. Neurologic followup. 5. Speech pathology followup, although he did undergo modified barium swallow which apparently was normal without any sign of aspiration. 6. Skin precaution. 7. Patient is a good candidate for acute rehabilitation and will require at least physical and occupational therapy, possibly speech pathology. Thank you for this referral.. LINNETTE LUBIN M.D. [id number]
--- NOTE | 2017-03-20 09:07 | PN ---
Progress Note (short form) - Note Progress Note: NEUROSURGERY Mild H/A and nausea; some generalized weakness PE: AF, VSS HEENT- NC/AT; Neck- supple; Cor- RRR; Lungs- CTA; Abd- benign; Ext- no sign of DVT A/A/Ox3 CN- intact II-XII; Motor-4+-5/5 B UE and LE without drift; Sensation- intact LT ; DTR-1+ Gait- deferred Head CT 10-4: moderate to marked periventricular hypodensity, R > L cerebellum hypodensity Brain MRA: no aneurysm, no significant stenosis Brain MRA co pilot axial images- no gross mass Brain MRI non-contrast (prelim): subacute R cerebellar dentate ischemia; some associated edema; moderate to marked periventricular small vessel disease Cereberovascular dz with subacute right cerebellar ischemia and chronic R occipital and periventricular ischemia Neurology f/u
[2017-03-20] MEDS: PANTOPRAZOLE 40 MG TABLET (FP) PO SCH (10:11)
[2017-03-20] MEDS: ASPIRIN COATED 81 MG TABLET.EC PO SCH (10:11)
[2017-03-20] MEDS: METHIMAZOLE 10 MG TABLET (FP) PO SCH (10:11)
--- NOTE | 2017-03-20 13:04 | PN ---
Progress Note, Physician Chief Complaint: AWAKE MORE ALERT NAD - Current Medication List Current Medications: Active Medications Acetaminophen (Tylenol -) 650 mg PO Q6H PRN PRN Reason: FEVER OR PAIN Aspirin (Ecotrin -) 81 mg PO DAILY [facility] Last Admin: 03/20/17 10:11 Dose: 81 mg Atorvastatin Calcium (Lipitor -) 10 mg PO HS [facility] Last Admin: 03/19/17 21:25 Dose: 10 mg Methadone HCl 160 mg/ (Methadone HCl 5 mg) 165 mg PO DAILY@0600 [facility] Last Admin: 03/20/17 06:36 Dose: 165 mg Methimazole (Tapazole -) 10 mg PO DAILY [facility] Last Admin: 03/20/17 10:11 Dose: 10 mg Montelukast Sodium (Singulair -) 10 mg PO [facility] Last Admin: 03/19/17 21:25 Dose: 10 mg Pantoprazole Sodium (Protonix -) 40 mg PO DAILY [facility] Last Admin: 03/20/17 10:11 Dose: 40 mg - Objective Vital Signs: Vital Signs Temperature 98.7 F 03/20/17 06:00 Pulse Rate 75 03/20/17 06:00 Respiratory Rate 20 03/20/17 06:00 Blood Pressure 118/77 03/20/17 06:00 O2 Sat by Pulse Oximetry (%) 97 03/20/17 09:00 Constitutional: Yes: No Distress Eyes: Yes: WNL HENT: Yes: WNL Neck: Yes: WNL Cardiovascular: Yes: WNL Respiratory: Yes: WNL Gastrointestinal: Yes: WNL Genitourinary: Yes: WNL Musculoskeletal: Yes: Muscle Weakness Extremities: Yes: WNL Edema: No Peripheral Pulses WNL: Yes Integumentary: Yes: WNL Wound/Incision: Yes: Clean/Dry Neurological: Yes: Confusion, Pre-Existing Deficit, Weakness ...Motor Strength: LLE, RLE Psychiatric: Yes: WNL Labs: CBC, BMP 03/19/17 05:15 03/19/17 05:15 INR, PTT INR 1.07 (0.82-1.09) 03/18/17 11:17 Problem List - Problems (1) CVA (cerebral vascular accident) Code(s): I63.9 - CEREBRAL INFARCTION, UNSPECIFIED Qualifiers: CVA mechanism: unspecified Qualified Code(s): I63.9 - Cerebral infarction, unspecified; I63.9 - Cerebral infarction, unspecified; I63.9 - Cerebral infarction, unspecified; I63.9 - Cerebral infarction, unspecified (2) Chest pain Code(s): R07.9 - CHEST PAIN, UNSPECIFIED (3) Methadone maintenance therapy patient Code(s): F11.20 - OPIOID DEPENDENCE, UNCOMPLICATED (4) Hypertension Code(s): I10 - ESSENTIAL (PRIMARY) HYPERTENSION (5) Lipidemia Code(s): E78.5 - HYPERLIPIDEMIA, UNSPECIFIED Assessment/Plan lipid panel reviewed on statin and asa pt eval oob to chair methadone dependence therapy
[2017-03-20] MEDS: MAGNESIUM HYDROX 2400MG/30ML ORAL SUSPENSION 30 ML CUP PO PRN (15:41)
[2017-03-20] MEDS: ATORVASTATIN CA 10 MG TABLET (FP) PO SCH (21:16)
[2017-03-20] MEDS: DOCUSATE SODIUM 100 MG CAPSULE (FP) PO SCH (21:16)
[2017-03-20] MEDS: MONTELUKAST NA 10 MG TABLET PO SCH (21:17)
[2017-03-21] MEDS ORDERED: METHADONE HCL 5 MG TABLET ONE (06:14)
[2017-03-21] MEDS ORDERED: METHADONE HCL 40 MG DISPERSABLE TABLET ONE (06:14)
[2017-03-21] MEDS: METHADONE 160 MG, METHADONE 5 MG PO SCH (06:15)
[2017-03-21] MEDS: ASPIRIN COATED 81 MG TABLET.EC PO SCH (09:04)
[2017-03-21] MEDS: METHIMAZOLE 10 MG TABLET (FP) PO SCH (09:04)
[2017-03-21] MEDS: PANTOPRAZOLE 40 MG TABLET (FP) PO SCH (09:04)
--- NOTE | 2017-03-21 10:34 | PN ---
Progress Note (short form) - Note Progress Note: NEUROSURGERY Mild H/A and nausea; generalized weakness PE: AF, VSS HEENT- NC/AT; Neck- supple; Cor- RRR; Lungs- CTA; Abd- benign; Ext- no sign of DVT A/A/Ox2 CN- intact II-XII; Motor-4+-5/5 B UE and LE without drift; Sensation- intact LT ; DTR-1+; Cerebellar- R hand dysmetria Gait- deferred Head CT 03-18: moderate to marked periventricular hypodensity, R > L cerebellum hypodensity Brain MRA: no aneurysm, no significant stenosis Brain MRI non-contrast : subacute R cerebellar dentate surrounding ischemia; central dentate cystic portion; some associated edema; moderate to marked periventricular small vessel disease Cereberovascular dz with subacute (10 days old) on chronic right cerebellar ischemia Can obtain brain MRI with efrain to r/o neoplasm per radiology recommendation, though subacute chronic stroke will enhance anyway Pt not interested in surgical intervention Neurology f/u
--- NOTE | 2017-03-21 11:47 | PN ---
Progress Note, Physician Chief Complaint: ASLEEP COMFORTABLE - Current Medication List Current Medications: Active Medications Acetaminophen (Tylenol -) 650 mg PO Q6H PRN PRN Reason: FEVER OR PAIN Aspirin (Ecotrin -) 81 mg PO DAILY [facility] Last Admin: 03/21/17 09:04 Dose: 81 mg Atorvastatin Calcium (Lipitor -) 10 mg PO HS [facility] Last Admin: 03/20/17 21:16 Dose: 10 mg Docusate Sodium (Colace -) 300 mg PO [facility] Last Admin: 03/20/17 21:16 Dose: 300 mg Magnesium Hydroxide (Milk Of Magnesia -) 30 ml PO Q8H PRN PRN Reason: INDIGESTION Last Admin: 03/20/17 15:41 Dose: 30 ml Methadone HCl 160 mg/ (Methadone HCl 5 mg) 165 mg PO DAILY@0600 [facility] Last Admin: 03/21/17 06:15 Dose: 165 mg Methimazole (Tapazole -) 10 mg PO DAILY [facility] Last Admin: 03/21/17 09:04 Dose: 10 mg Montelukast Sodium (Singulair -) 10 mg PO [facility] Last Admin: 03/20/17 21:17 Dose: 10 mg Pantoprazole Sodium (Protonix -) 40 mg PO DAILY [facility] Last Admin: 03/21/17 09:04 Dose: 40 mg - Objective Vital Signs: Vital Signs Temperature 98.3 F 03/21/17 09:00 Pulse Rate 70 03/21/17 09:00 Respiratory Rate 20 03/21/17 09:00 Blood Pressure 137/70 03/21/17 09:00 O2 Sat by Pulse Oximetry (%) 93 L 03/21/17 09:00 Constitutional: Yes: No Distress Eyes: Yes: WNL HENT: Yes: WNL Neck: Yes: WNL Cardiovascular: Yes: WNL Respiratory: Yes: WNL Gastrointestinal: Yes: WNL Genitourinary: Yes: WNL Musculoskeletal: Yes: Muscle Weakness Extremities: Yes: WNL Edema: No Peripheral Pulses WNL: Yes Integumentary: Yes: WNL Wound/Incision: Yes: Clean/Dry Neurological: Yes: Pre-Existing Deficit, Unsteady Gait, Weakness ...Motor Strength: LLE, RLE Psychiatric: Yes: Other Labs: CBC, BMP 03/19/17 05:15 03/19/17 05:15 INR, PTT INR 1.07 (0.82-1.09) 03/18/17 11:17 Problem List - Problems (1) CVA (cerebral vascular accident) Code(s): I63.9 - CEREBRAL INFARCTION, UNSPECIFIED Qualifiers: CVA mechanism: unspecified Qualified Code(s): I63.9 - Cerebral infarction, unspecified; I63.9 - Cerebral infarction, unspecified; I63.9 - Cerebral infarction, unspecified; I63.9 - Cerebral infarction, unspecified (2) Chest pain Code(s): R07.9 - CHEST PAIN, UNSPECIFIED (3) Methadone maintenance therapy patient Code(s): F11.20 - OPIOID DEPENDENCE, UNCOMPLICATED (4) Hypertension Code(s): I10 - ESSENTIAL (PRIMARY) HYPERTENSION (5) Lipidemia Code(s): E78.5 - HYPERLIPIDEMIA, UNSPECIFIED Assessment/Plan PATIENT IS NOT INTERESTED IN BRAIN SURGERY AT THIS TIME PT EVAL SNF NEUROSURGERY EVAL APPRECIATED
[2017-03-21] MEDS: MONTELUKAST NA 10 MG TABLET PO SCH (22:08)
[2017-03-21] MEDS: ATORVASTATIN CA 10 MG TABLET (FP) PO SCH (22:08)
[2017-03-21] MEDS: DOCUSATE SODIUM 100 MG CAPSULE (FP) PO SCH (22:08)
[2017-03-22] MEDS ORDERED: METHADONE HCL 40 MG DISPERSABLE TABLET ONE (06:27)
[2017-03-22] MEDS: METHADONE 160 MG, METHADONE 5 MG PO SCH (06:28)
[2017-03-22] MEDS ORDERED: METHADONE HCL 5 MG TABLET ONE (06:28)
[2017-03-22] MEDS: PANTOPRAZOLE 40 MG TABLET (FP) PO SCH (09:27)
[2017-03-22] MEDS: ASPIRIN COATED 81 MG TABLET.EC PO SCH (09:28)
[2017-03-22] MEDS: METHIMAZOLE 10 MG TABLET (FP) PO SCH (09:28)
--- NOTE | 2017-03-22 10:08 | PN ---
Progress Note (short form) - Note Progress Note: NEUROSURGERY NO H/A PE: AF, VSS HEENT- NC/AT; Neck- supple; Cor- RRR; Lungs- CTA; Abd- benign; Ext- no sign of DVT A/A/Ox2 CN- intact II-XII; Motor-4+-5/5 B UE and LE without drift; Sensation- intact LT ; DTR-1+; Cerebellar- R hand dysmetria Gait- deferred Head CT 10-4: moderate to marked periventricular hypodensity, R > L cerebellum cytic hypodensity with surrounding mild hyperdensity extending to vermis Brain MRA: no aneurysm, no significant stenosis Brain MRI non-contrast : subacute R cerebellar dentate surrounding ischemia; central dentate cystic portion; some associated edema; moderate to marked periventricular small vessel disease Cereberovascular dz with subacute (10 days old) on chronic right cerebellar ischemia Baseline brain MRI with efrain Can obtain brain MRI with efrain to r/o neoplasm per radiology recommendation, though subacute chronic stroke will enhance anyway Neurology f/u
--- NOTE | 2017-03-22 11:01 | PN ---
Progress Note (short form) - Note Progress Note: PULMONARY CONSULTATION DICTATED 03/22/17 IMP PROMINENT R HILUM ?MASS,?VASCULAR,?ADENOPATHY COPD CEREBELLAR LESION ? MET VS CVA HTN GERD H/O SUBSTANCE ABUSE PLAN CHEST CT INHALED BRONCHODILATORS MRI BRAIN WITH NOEMI DR UGIDRY Problem List - Problems (1) CVA (cerebral vascular accident) Code(s): I63.9 - CEREBRAL INFARCTION, UNSPECIFIED Qualifiers: CVA mechanism: unspecified Qualified Code(s): I63.9 - Cerebral infarction, unspecified; I63.9 - Cerebral infarction, unspecified; I63.9 - Cerebral infarction, unspecified; I63.9 - Cerebral infarction, unspecified (2) Hypertension Code(s): I10 - ESSENTIAL (PRIMARY) HYPERTENSION (3) Lipidemia Code(s): E78.5 - HYPERLIPIDEMIA, UNSPECIFIED (4) Chest pain Code(s): R07.9 - CHEST PAIN, UNSPECIFIED (5) Methadone maintenance therapy patient Code(s): F11.20 - OPIOID DEPENDENCE, UNCOMPLICATED (6) Unsteady gait Code(s): R26.81 - UNSTEADINESS ON FEET (7) COPD (chronic obstructive pulmonary disease) case management patient Code(s): [id number] - (8) COPD (chronic obstructive pulmonary disease) Code(s): J44.9 - CHRONIC OBSTRUCTIVE PULMONARY DISEASE, UNSPECIFIED
--- NOTE | 2017-03-22 12:38 | PN ---
Progress Note, Physician Chief Complaint: AWAKE ALERT TODAY EATING LUNCH MRI BRAIN COMPLETED CT CHEST COMPLETE AWAITING RESULTS - Current Medication List Current Medications: Active Medications Acetaminophen (Tylenol -) 650 mg PO Q6H PRN PRN Reason: FEVER OR PAIN Aspirin (Ecotrin -) 81 mg PO DAILY [facility] Last Admin: 03/22/17 09:28 Dose: 81 mg Atorvastatin Calcium (Lipitor -) 10 mg PO [facility] Last Admin: 03/21/17 22:08 Dose: 10 mg Docusate Sodium (Colace -) 300 mg PO HS [facility] Last Admin: 03/21/17 22:08 Dose: 300 mg Magnesium Hydroxide (Milk Of Magnesia -) 30 ml PO Q8H PRN PRN Reason: INDIGESTION Last Admin: 03/20/17 15:41 Dose: 30 ml Methadone HCl 160 mg/ (Methadone HCl 5 mg) 165 mg PO DAILY@0600 [facility] Last Admin: 03/22/17 06:28 Dose: 165 mg Methimazole (Tapazole -) 10 mg PO DAILY [facility] Last Admin: 03/22/17 09:28 Dose: 10 mg Montelukast Sodium (Singulair -) 10 mg PO [facility] Last Admin: 03/21/17 22:08 Dose: 10 mg Pantoprazole Sodium (Protonix -) 40 mg PO DAILY [facility] Last Admin: 03/22/17 09:27 Dose: 40 mg - Objective Vital Signs: Vital Signs Temperature 96.5 F L 03/22/17 09:30 Pulse Rate 65 03/22/17 09:30 Respiratory Rate 20 03/22/17 09:30 Blood Pressure 97/59 03/22/17 09:30 O2 Sat by Pulse Oximetry (%) 92 L 03/22/17 09:00 Constitutional: Yes: No Distress Eyes: Yes: WNL HENT: Yes: WNL Neck: Yes: WNL Cardiovascular: Yes: WNL Respiratory: Yes: Cough, Other Gastrointestinal: Yes: WNL Genitourinary: Yes: WNL Musculoskeletal: Yes: Muscle Weakness Extremities: Yes: WNL Edema: Yes Edema: LLE: Trace, RLE: Trace Peripheral Pulses WNL: Yes Integumentary: Yes: WNL Wound/Incision: Yes: Clean/Dry Neurological: Yes: Pre-Existing Deficit, Unsteady Gait ...Motor Strength: LLE, RLE Psychiatric: Yes: Other Labs: CBC, BMP 03/19/17 05:15 03/19/17 05:15 INR, PTT INR 1.07 (0.82-1.09) 03/18/17 11:17 Problem List - Problems (1) CVA (cerebral vascular accident) Code(s): I63.9 - CEREBRAL INFARCTION, UNSPECIFIED Qualifiers: CVA mechanism: unspecified Qualified Code(s): I63.9 - Cerebral infarction, unspecified; I63.9 - Cerebral infarction, unspecified; I63.9 - Cerebral infarction, unspecified; I63.9 - Cerebral infarction, unspecified (2) Chest pain Code(s): R07.9 - CHEST PAIN, UNSPECIFIED (3) Methadone maintenance therapy patient Code(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
--- NOTE | 2017-03-22 13:14 | CONS ---
DATE OF CONSULTATION: 03/22/2017 REFERRING PHYSICIAN: Carlos Miramontes MD The patient is a 66-year-old white male with past medical history of hypertension, hypercholesterolemia, hypothyroidism, GERD, history of IVDA years ago with longstanding history of tobacco use, approximately 1-1/2 packs per day since childhood, admitted to [facility] with complaints of 1-week history of deterioration of gait and states walking like a drunk. He also noticed that he had difficulty putting a rod in the front door with his right hand. He also noted progressive weakness over the next week and, apparently, fell in the bathtub the day prior to admission. On admission, he presented to the emergency room. At the time, he had a CT of the head revealing an old, deep cerebellar infarct. He underwent an MRI of the brain without gadolinium, which revealed an area of mass-like signal abnormality in the right cerebellum, measured 2.5 x 3.5 x 2.5 cm, with surrounding edema. He was evaluated by Dr. Carlos Miramontes for neurosurgical evaluation. As stated before, the patient has a longstanding history of tobacco use and, currently, still smokes. He sates that he does get short of breath with exertion, has a chronic cough that is nonproductive. Denies any hemoptysis, denies any weight loss, denies any night sweats. At times, he does have occasional chest pains. He also states that he has history of COPD and is maintained on an inhaler as an outpatient. He previously worked as an steam engineer and states that he does have occupational exposures, but unsure which ones they are. He denies any orthopnea or PND. PAST MEDICAL HISTORY: Again, includes COPD, hypertension, hyperlipidemia, hypothyroidism, GERD. REVIEW OF SYSTEMS: No orthopnea, no PND. Positive dyspnea on exertion, positive weakness, positive chest pain, positive cough that is nonproductive. No abdominal pain, no lower extremity edema. CURRENT MEDICATIONS: Tapazole, Tylenol, Milk of Magnesia, methadone, Protonix, Singulair, Ecotrin. PHYSICAL EXAMINATION: General: The patient is a well-developed, well-nourished male, awake, alert, in no acute distress. Vital Signs: He is afebrile, blood pressure 197/59, respiratory rate is 20, heart rate is 71, and O2 saturation is 95% on room air. HEENT: Normal, normocephalic, atraumatic. Neck: Supple. Heart: Regular, S1, S2. Chest: Few scattered bilateral wheezes. Abdomen: Soft, bowel sounds are positive. Extremities: No cyanosis, edema. LABORATORIES: WBC is 7.3, hemoglobin 13.8, hematocrit 41.6 with a platelet count of 245,000. INR is 1.07. Chest x-ray is prominent right hilum. MRI of the brain, again, reveals mass-like signal, 2.5 x 3.5 x 2.5 cm, lesion in the cerebellum peduncle. IMPRESSION: 1. Prominent right hilum, rule out possible malignancy; cannot exclude possible longstanding history of tobacco use as well as possible central nervous system metastasis. 2. Underlying chronic obstructive pulmonary disease. 3. Cerebellar lesion, possible as well as a previous cerebrovascular accident. 4. History of hypertension. 5. Hypercholesterolemia. PLAN: CT scan of the chest, MRI of the brain with gadolinium, inhaled bronchodilators, continue further workup as per results of chest CT as well as MRI of the brain. KAYLEN GUIDRY M.D. [id number]
[2017-03-22] MEDS: MAGNESIUM HYDROX 2400MG/30ML ORAL SUSPENSION 30 ML CUP PO PRN (17:27)
[2017-03-22] MEDS: MONTELUKAST NA 10 MG TABLET PO SCH (21:17)
[2017-03-22] MEDS: DOCUSATE SODIUM 100 MG CAPSULE (FP) PO SCH (21:17)
[2017-03-22] MEDS: ATORVASTATIN CA 10 MG TABLET (FP) PO SCH (21:17)
[2017-03-23] MEDS ORDERED: METHADONE HCL 40 MG DISPERSABLE TABLET ONE (05:48)
[2017-03-23] MEDS ORDERED: METHADONE HCL 5 MG TABLET ONE (05:49)
[2017-03-23] MEDS: METHADONE 160 MG, METHADONE 5 MG PO SCH (05:53)
--- NOTE | 2017-03-23 09:34 | PN ---
Progress Note (short form) - Note Progress Note: NEUROSURGERY NO H/A Still feels weak overall 1 1/2 pack/day smoker x 50 years PE: AF, VSS HEENT- NC/AT; Neck- supple; Cor- RRR; Lungs- CTA; Abd- benign; Ext- no sign of DVT A/A/Ox2 CN- intact II-XII; Motor-4+-5/5 B UE and LE without drift; Sensation- intact LT ; DTR-1+; Cerebellar- R hand dysmetria Gait- deferred Head CT: moderate to marked periventricular hypodensity, R > L cerebellum cytic hypodensity with surrounding mild hyperdensity extending to vermis Brain MRA: no aneurysm, no significant stenosis Brain MRI non-contrast : subacute R cerebellar dentate surrounding ischemia; central dentate cystic portion; some associated edema; moderate to marked periventricular small vessel disease Brain MRI with efrain- R cerebellar centrally cystic and peripherally enhancing lesion with R tentorial attachment/abutment CT Chest- multiple B mass lesions including one encasing R pulmonary artery Cerebrovascular dz with subacute on chronic right cerebellar ischemia Moderate to large R cerebellar lesion c/w mets in light of chest CT findings Pulmonary followup Tissue diagnosis needed for tx Patient not inclined to undergo R cerebellar lesion debulking/biopsy, after being explained the pros and cons Oncology/rad onc input recommended per medical team
[2017-03-23] MEDS: ASPIRIN COATED 81 MG TABLET.EC PO SCH (10:18)
[2017-03-23] MEDS: PANTOPRAZOLE 40 MG TABLET (FP) PO SCH (10:18)
[2017-03-23] MEDS: METHIMAZOLE 10 MG TABLET (FP) PO SCH (10:18)
[2017-03-23] MEDS ORDERED: ALBUTEROL SO4 2.5/IPRATROPIUM 0.5 INH SOL 3 ML VIAL.NEB. NEB PRN (10:44)
--- NOTE | 2017-03-23 10:44 | PN ---
Progress Note, Physician History of Present Illness: PULMONARY AWAKE,MILD CONGESTION. CHEST CT + RUL MASS ,HILAR MASS - Current Medication List Current Medications: Active Medications Acetaminophen (Tylenol -) 650 mg PO Q6H PRN PRN Reason: FEVER OR PAIN Aspirin (Ecotrin -) 81 mg PO DAILY [facility] Last Admin: 03/23/17 10:18 Dose: 81 mg Atorvastatin Calcium (Lipitor -) 10 mg PO HS [facility] Last Admin: 03/22/17 21:17 Dose: 10 mg Docusate Sodium (Colace -) 300 mg PO HS [facility] Last Admin: 03/22/17 21:17 Dose: 300 mg Magnesium Hydroxide (Milk Of Magnesia -) 30 ml PO Q8H PRN PRN Reason: INDIGESTION Last Admin: 03/22/17 17:27 Dose: 30 ml Methadone HCl 160 mg/ (Methadone HCl 5 mg) 165 mg PO DAILY@0600 [facility] Last Admin: 03/23/17 05:53 Dose: 165 mg Methimazole (Tapazole -) 10 mg PO DAILY [facility] Last Admin: 03/23/17 10:18 Dose: 10 mg Montelukast Sodium (Singulair -) 10 mg PO HS [facility] Last Admin: 03/22/17 21:17 Dose: 10 mg Pantoprazole Sodium (Protonix -) 40 mg PO DAILY [facility] Last Admin: 03/23/17 10:18 Dose: 40 mg - Objective Vital Signs: Vital Signs Temperature 98.2 F 03/23/17 05:58 Pulse Rate 69 03/23/17 05:58 Respiratory Rate 18 03/23/17 05:58 Blood Pressure 107/46 03/23/17 05:58 O2 Sat by Pulse Oximetry (%) 93 L 03/22/17 20:49 Constitutional: Yes: Well Nourished, Calm Eyes: Yes: WNL HENT: Yes: WNL Neck: Yes: WNL Cardiovascular: Yes: Regular Rate and Rhythm, S1, S2 Respiratory: Yes: Rhonchi (SCATTERED FLOWER RHONCHI) Gastrointestinal: Yes: Normal Bowel Sounds, Soft Extremities: Yes: WNL Edema: No Labs: CBC, BMP 03/19/17 05:15 03/19/17 05:15 INR, PTT INR 1.07 (0.82-1.09) 03/18/17 11:17 - ....Imaging Cat Scan: Report Reviewed, Image Reviewed Problem List - Problems (1) CVA (cerebral vascular accident) Code(s): I63.9 - CEREBRAL INFARCTION, UNSPECIFIED Qualifiers: CVA mechanism: unspecified Qualified Code(s): I63.9 - Cerebral infarction, unspecified; I63.9 - Cerebral infarction, unspecified; I63.9 - Cerebral infarction, unspecified; I63.9 - Cerebral infarction, unspecified (2) Hypertension Code(s): I10 - ESSENTIAL (PRIMARY) HYPERTENSION (3) Lipidemia Code(s): E78.5 - HYPERLIPIDEMIA, UNSPECIFIED (4) Chest pain Code(s): R07.9 - CHEST PAIN, UNSPECIFIED (5) Methadone maintenance therapy patient Code(s): F11.20 - OPIOID DEPENDENCE, UNCOMPLICATED (6) Unsteady gait Code(s): R26.81 - UNSTEADINESS ON FEET (7) COPD (chronic obstructive pulmonary disease) case management patient Code(s): [id number] - (8) COPD (chronic obstructive pulmonary disease) Code(s): J44.9 - CHRONIC OBSTRUCTIVE PULMONARY DISEASE, UNSPECIFIED (9) Lung mass Code(s): R91.8 - OTHER NONSPECIFIC ABNORMAL FINDING OF LUNG FIELD (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 Code(s): C34.90 - MALIGNANT NEOPLASM OF UNSP PART OF UNSP BRONCHUS OR LUNG G32.81 - CEREBELLAR ATAXIA IN DISEASES CLASSIFIED ELSEWHERE Assessment/Plan MP LUNG CA WITH GEODETIC SURVEYOR TECHNOLOGIST METS COPD CEREBELLAR LESION C/W METS HTN GERD H/O SUBSTANCE ABUSE PLAN CHEST CT GUIDED ASPIRATION BX RUL MASS INHALED BRONCHODILATORS RT AND ONCOLOGY EVALUATION DR GUIDRY Problem List - Problems (1) CVA (cerebral vascular accident) Code(s): I63.9 - CEREBRAL INFARCTION, UNSPECIFIED Qualifiers: CVA mechanism: unspecified Qualified Code(s): I63.9 - Cerebral infarction, unspecified; I63.9 - Cerebral infarction, unspecified; I63.9 - Cerebral infarction, unspecified; I63.9 - Cerebral infarction, unspecified (2) Hypertension Code(s): I10 - ESSENTIAL (PRIMARY) HYPERTENSION (3) Lipidemia Code(s): E78.5 - HYPERLIPIDEMIA, UNSPECIFIED (4) Chest pain Code(s): R07.9 - CHEST PAIN, UNSPECIFIED (5) Methadone maintenance therapy patient Code(s): F11.20 - OPIOID DEPENDENCE, UNCOMPLICATED (6) Unsteady gait Code(s): R26.81 - UNSTEADINESS ON FEET (7) COPD (chronic obstructive pulmonary disease) case management patient Code(s): [id number] - (8) COPD (chronic obstructive pulmonary disease) Code(s): J44.9 - CHRONIC OBSTRUCTIVE PULMONARY DISEASE, UNSPECIFIED
--- NOTE | 2017-03-23 16:32 | PN ---
Progress Note, Physician History of Present Illness: NOTES REVIEWED PATIENT ASLEEP COMFORTABLE - Current Medication List Current Medications: Active Medications Acetaminophen (Tylenol -) 650 mg PO Q6H PRN PRN Reason: FEVER OR PAIN Albuterol/Ipratropium (Duoneb -) 1 amp NEB Q4H PRN PRN Reason: SHORTNESS OF BREATH Aspirin (Ecotrin -) 81 mg PO DAILY [facility] Last Admin: 03/23/17 10:18 Dose: 81 mg Atorvastatin Calcium (Lipitor -) 10 mg PO [facility] Last Admin: 03/22/17 21:17 Dose: 10 mg Docusate Sodium (Colace -) 300 mg PO HS [facility] Last Admin: 03/22/17 21:17 Dose: 300 mg Magnesium Hydroxide (Milk Of Magnesia -) 30 ml PO Q8H PRN PRN Reason: INDIGESTION Last Admin: 03/22/17 17:27 Dose: 30 ml Methadone HCl 160 mg/ (Methadone HCl 5 mg) 165 mg PO DAILY@0600 [facility] Last Admin: 03/23/17 05:53 Dose: 165 mg Methimazole (Tapazole -) 10 mg PO DAILY [facility] Last Admin: 03/23/17 10:18 Dose: 10 mg Montelukast Sodium (Singulair -) 10 mg PO [facility] Last Admin: 03/22/17 21:17 Dose: 10 mg Pantoprazole Sodium (Protonix -) 40 mg PO DAILY [facility] Last Admin: 03/23/17 10:18 Dose: 40 mg - Objective Vital Signs: Vital Signs Temperature 98.3 F 03/23/17 14:08 Pulse Rate 64 03/23/17 14:08 Respiratory Rate 18 03/23/17 14:08 Blood Pressure 105/63 03/23/17 14:08 O2 Sat by Pulse Oximetry (%) 94 L 03/23/17 09:00 Constitutional: Yes: No Distress Eyes: Yes: WNL HENT: Yes: WNL Neck: Yes: WNL Cardiovascular: Yes: WNL Respiratory: Yes: WNL, On Nasal O2, Wheezes Gastrointestinal: Yes: WNL Genitourinary: Yes: WNL Musculoskeletal: Yes: Muscle Weakness Extremities: Yes: WNL Edema: Yes Edema: LLE: 1+, RLE: 1+ Peripheral Pulses WNL: Yes Integumentary: Yes: WNL Wound/Incision: Yes: Clean/Dry Neurological: Yes: Numbness, Paresthesia, Pre-Existing Deficit, Weakness ...Motor Strength: LLE, RLE Psychiatric: Yes: Other Labs: CBC, BMP 03/19/17 05:15 03/19/17 05:15 INR, PTT INR 1.07 (0.82-1.09) 03/18/17 11:17 Problem List - Problems (1) CVA (cerebral vascular accident) Code(s): I63.9 - CEREBRAL INFARCTION, UNSPECIFIED Qualifiers: CVA mechanism: unspecified Qualified Code(s): I63.9 - Cerebral infarction, unspecified; I63.9 - Cerebral infarction, unspecified; I63.9 - Cerebral infarction, unspecified; I63.9 - Cerebral infarction, unspecified (2) Chest pain Code(s): R07.9 - CHEST PAIN, UNSPECIFIED (3) Methadone maintenance therapy patient Code(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.20 - OPIOID DEPENDENCE, UNCOMPLICATED (4) Hypertension Code(s): I10 - ESSENTIAL (PRIMARY) HYPERTENSION (5) Lipidemia Code(s): E78.5 - HYPERLIPIDEMIA, UNSPECIFIED (6) Lung cancer associated cerebellar ataxia Code(s): C34.90 - MALIGNANT NEOPLASM OF UNSP PART OF UNSP BRONCHUS OR LUNG G32.81 - CEREBELLAR ATAXIA IN DISEASES CLASSIFIED ELSEWHERE (7) Lung mass Code(s): R91.8 - OTHER NONSPECIFIC ABNORMAL FINDING OF LUNG FIELD (8) Lung malignancy Code(s): C34.90 - MALIGNANT NEOPLASM OF UNSP PART OF UNSP BRONCHUS OR LUNG (9) Brain malignancy Code(s): C71.9 - MALIGNANT NEOPLASM OF BRAIN, UNSPECIFIED Assessment/Plan MRI BRAIN/CT CHEST REVIEWED ONCOLOGY EVAL PENDING LUNG BIOPSY SEIZURE PRECAUTIONS START [facility] REVIEWED METHADONE DETOX
--- NOTE | 2017-03-23 22:32 | CONSULT ---
Consult - text type - Consultation Consultation Note: Patient is a 66-year-old male with past medical history of HTN, HLD, COPD, GERD who presents with dizziness, weakness, headache. Patient states that his symptoms started approximately 1 week ago. He has progressively gotten weaker over the past week. He states that he can no longer walk because of the weakness and that he lives alone. He states that he feels like his vision has changed. Denies fevers, chills ROM a cough, chest pain, shortness of breath, nausea, vomiting, diarrhea, frequency, urgency, dysuria. No cough/hemoptysis Past History HTN COPD Hyperlipidemia GERD hyperthyroid Past surgical history none Allergies/Adverse Reactions: Allergies Allergy/AdvReac Type Severity Reaction Status Date / Time No Known Allergies Allergy Verified 03/18/17 10:44 Home Medications: Ambulatory Orders Aspirin [ASA -] 81 mg PO DAILY 01/08/17 Atorvastatin Ca [Lipitor] 40 mg PO HS 01/08/17 Loratadine 10 mg PO DAILY 01/08/17 Methadone [Dolophine -] 165 mg PO DAILY 01/08/17 Methimazole 5 mg PO DAILY 01/08/17 Montelukast Na [Singulair -] 10 mg PO HS 01/08/17 Omeprazole 20 mg PO DAILY 01/08/17 - Suicide/Smoking/Psychosocial Hx Smoking History: Current every day smoker - Vital Signs Patient is a 66-year-old male with past medical history of HTN, HLD, COPD, GERD who presents to the emergency department complaining of dizziness, weakness, headache for one week. Heavy smoker with RUL lung mass/mediastinal adenopathy/rt. cerebellar hemorrhagic metastasis Head CT: moderate to marked periventricular hypodensity, R > L cerebellum cytic hypodensity with surrounding mild hyperdensity extending to vermis Brain MRA: no aneurysm, no significant stenosis Brain MRI non-contrast : subacute R cerebellar dentate surrounding ischemia; central dentate cystic portion; some associated edema; moderate to marked periventricular small vessel disease Brain MRI with efrain- R cerebellar centrally cystic and peripherally enhancing lesion with hemrrhage. Exensive edema, compression of 4th ventricle. Severe microvascular ischemisc disease/lacunar infarcts CT Chest- Rt. Upper lobe mass/ rt. hilar and mediastinall masses encasing pulmonary artery For tissue diagnosis -- CT guided biopsy of lung lsion but patient has been on ASA for cerebrovascular disease will need to discuss with neuro Discussed with neuro about steroids---to start dexamethasone 4mg IVPB Q 6h/ protonix/keppra will discuss with pulmonary team/primary team rad-onc eval
[2017-03-23] MEDS: ATORVASTATIN CA 10 MG TABLET (FP) PO SCH (22:35)
[2017-03-23] MEDS: DOCUSATE SODIUM 100 MG CAPSULE (FP) PO SCH (22:35)
[2017-03-23] MEDS: levETIRAcetam 500 MG TABLET (FP) PO SCH (22:35)
[2017-03-23] MEDS: MONTELUKAST NA 10 MG TABLET PO SCH (22:35)
[2017-03-23] MEDS: DEXAMETHASONE SOD PHOSPHATE 4 MG/1 ML VIAL IVPB SCH (22:35)
[2017-03-24] MEDS: DEXAMETHASONE SOD PHOSPHATE 4 MG/1 ML VIAL IVPB SCH ×2 (04:00→09:29)
[2017-03-24] MEDS ORDERED: METHADONE HCL 5 MG TABLET ONE (06:27)
[2017-03-24] MEDS ORDERED: METHADONE HCL 40 MG DISPERSABLE TABLET ONE (06:27)
[2017-03-24] MEDS: METHADONE 160 MG, METHADONE 5 MG PO SCH (06:32)
[2017-03-24 06:52] LABS: ALBUMIN 2.5 g/dl (3.4-5.0); CALCIUM 8.5 mg/dL (8.5-10.1)
[2017-03-24 06:56] LABS: MCH 30.9 pg (25.7-33.7); MCHC 32.5 g/dl (32.0-35.9); MEAN CELL VOLUME 95.1 fl (80-96); MEAN PLT VOLUME 7.7 fl (7.5-11.1); PLATELET COUNT 277 K/MM3 (134-434); RDW 14.3 % (11.9-15.9); WHITE BLOOD COUNT 6.1 K/mm3 (4.0-10.0)
[2017-03-24 06:58] LABS: ALK PHOS 92 U/L (45-117); ANION GAP 8 (8-16); BILIRUBIN,TOTAL 0.7 mg/dL (0.2-1.0); CO2 31 mmol/L (21-32); CREATININE 0.5 mg/dL (0.7-1.3); GLUCOSE,RANDOM 148 mg/dL (74-106); SGOT/AST 17 U/L (15-37); SGPT/ALT 20 U/L (12-78); TOT PROT 6.2 g/dl (6.4-8.2)
[2017-03-24 08:19] LABS: INR 1.11 (0.82-1.09); PROTHROMBIN TIME (PATIENT) 12.2 SEC (9.98-11.88)
--- NOTE | 2017-03-24 08:19 | PN ---
Progress Note (short form) - Note Progress Note: NEUROSURGERY No H/A, N/V Still feels weak overall Eating breakfast in bed PE: AF, VSS HEENT- NC/AT; Neck- supple; Cor- RRR; Lungs- CTA; Abd- benign; Ext- no sign of DVT A/A/Ox2-3 CN- intact II-XII; Motor-4+-5/5 B UE and LE without drift; Sensation- intact LT ; DTR-1+; Cerebellar- R hand dysmetria Brain MRI with efrain- R cerebellar centrally cystic and peripherally enhancing lesion with R tentorial attachment/abutment CT Chest- multiple B mass lesions including one encasing R pulmonary artery Cerebrovascular dz with chronic right ocipital and periventricular ischemia Moderate to large R cerebellar lesion c/w mets in light of chest CT findings Pulmonary followup Tissue diagnosis needed - for lung lesion biopsy Hold ASA if biopsy is planned Patient does not wish to undergo solitary R cerebellar lesion debulking/biopsy, after being explained the pros and cons as well as risks and benefits
[2017-03-24 09:27] VITALS: BP 116/68; TEMP 98.2
[2017-03-24] MEDS: METHIMAZOLE 10 MG TABLET (FP) PO SCH (09:29)
[2017-03-24] MEDS: PANTOPRAZOLE 40 MG TABLET (FP) PO SCH (09:29)
[2017-03-24] MEDS: levETIRAcetam 500 MG TABLET (FP) PO SCH (09:29)
--- NOTE | 2017-03-24 09:53 | PN ---
Progress Note, FOOD PRODUCTION SUPERVISOR - Note Progress Note: Medicalo events noted: Brain MRI with efrain- R cerebellar centrally cystic and peripherally enhancing lesion with R tentorial attachment/abutment CT Chest- multiple B mass lesions including one encasing R pulmonary artery Cerebrovascular dz with chronic right ocipital and periventricular ischemia Moderate to large R cerebellar lesion c/w mets in light of chest CT findings MBS 03/19 with norming oral pharyngeal swallowing function but with persistent narrowing in distal esophagus. Please refer to mbs and radiologist's report. Pt is tolerating present diet of pure and nectar bu dislikes it and can be upgraded. Suggest: r/o etiology of persistent narrowing at GE junction Dys ground and thin liquid.Can add scrambled eggs, very soft food such at tuna/ eggsalad/quiche,Supplements.
--- NOTE | 2017-03-24 10:44 | PN ---
Progress Note, Physician History of Present Illness: PULMONARY ALERT,LESS CONGESTED,LESS COUGH. BX CANNOT BE PERFORMED FOR 5-7 DAYS SINCE PT WAS ON ASA - Current Medication List Current Medications: Active Medications Acetaminophen (Tylenol -) 650 mg PO Q6H PRN PRN Reason: FEVER OR PAIN Albuterol/Ipratropium (Duoneb -) 1 amp NEB Q4H PRN PRN Reason: SHORTNESS OF BREATH Aspirin (Ecotrin -) 81 mg PO DAILY [facility] Last Admin: 03/23/17 10:18 Dose: 81 mg Atorvastatin Calcium (Lipitor -) 10 mg PO [facility] Last Admin: 03/23/17 22:35 Dose: 10 mg Dexamethasone Sodium Phosphate (Decadron Injection -) 4 mg IVPB Q6H-IV [facility] Last Admin: 03/24/17 09:29 Dose: 4 mg Docusate Sodium (Colace -) 300 mg PO [facility] Last Admin: 03/23/17 22:35 Dose: 300 mg Levetiracetam (Keppra -) 500 mg PO BID [facility] Last Admin: 03/24/17 09:29 Dose: 500 mg Magnesium Hydroxide (Milk Of Magnesia -) 30 ml PO Q8H PRN PRN Reason: INDIGESTION Last Admin: 03/22/17 17:27 Dose: 30 ml Methadone HCl 160 mg/ (Methadone HCl 5 mg) 165 mg PO DAILY@0600 [facility] Last Admin: 03/24/17 06:32 Dose: 165 mg Methimazole (Tapazole -) 10 mg PO DAILY [facility] Last Admin: 03/24/17 09:29 Dose: 10 mg Montelukast Sodium (Singulair -) 10 mg PO [facility] Last Admin: 03/23/17 22:35 Dose: 10 mg Pantoprazole Sodium (Protonix -) 40 mg PO DAILY [facility] Last Admin: 03/24/17 09:29 Dose: 40 mg - Objective Vital Signs: Vital Signs Temperature 98.2 F 03/24/17 09:00 Pulse Rate 62 03/24/17 09:00 Respiratory Rate 16 03/24/17 09:00 Blood Pressure 116/68 03/24/17 09:00 O2 Sat by Pulse Oximetry (%) 95 03/23/17 20:31 Constitutional: Yes: Well Nourished, Calm Eyes: Yes: WNL HENT: Yes: WNL Neck: Yes: WNL Cardiovascular: Yes: Regular Rate and Rhythm, S1, S2 Respiratory: Yes: Rhonchi (FEW RHONCHI) Gastrointestinal: Yes: Normal Bowel Sounds, Soft Extremities: Yes: WNL Edema: No Labs: CBC, BMP 03/24/17 05:10 03/24/17 05:10 INR, PTT INR 1.11 (0.82-1.09) 03/24/17 05:10 Fibrinogen 655.0 mg/dL (238-498) H 03/24/17 05:10 Problem List - Problems (1) CVA (cerebral vascular accident) Code(s): I63.9 - CEREBRAL INFARCTION, UNSPECIFIED Qualifiers: CVA mechanism: unspecified Qualified Code(s): I63.9 - Cerebral infarction, unspecified; I63.9 - Cerebral infarction, unspecified; I63.9 - Cerebral infarction, unspecified; I63.9 - Cerebral infarction, unspecified (2) Hypertension Code(s): I10 - ESSENTIAL (PRIMARY) HYPERTENSION (3) Lipidemia Code(s): E78.5 - HYPERLIPIDEMIA, UNSPECIFIED (4) Chest pain Code(s): R07.9 - CHEST PAIN, UNSPECIFIED (5) Methadone maintenance therapy patient Code(s): F11.20 - OPIOID DEPENDENCE, UNCOMPLICATED (6) Unsteady gait Code(s): R26.81 - UNSTEADINESS ON FEET (7) COPD (chronic obstructive pulmonary disease) case management patient Code(s): [id number] - (8) COPD (chronic obstructive pulmonary disease) Code(s): J44.9 - CHRONIC OBSTRUCTIVE PULMONARY DISEASE, UNSPECIFIED (9) Lung mass Code(s): R91.8 - OTHER NONSPECIFIC ABNORMAL FINDING OF LUNG FIELD (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 Code(s): C34.90 - MALIGNANT NEOPLASM OF UNSP PART OF UNSP BRONCHUS OR LUNG G32.81 - CEREBELLAR ATAXIA IN DISEASES CLASSIFIED ELSEWHERE Assessment/Plan MP LUNG CA WITH PYTHON ARCHITECT METS COPD CEREBELLAR LESION C/W METS HTN GERD H/O SUBSTANCE ABUSE PLAN CHEST CT GUIDED ASPIRATION BX RUL MASS 5-7 DAYS INHALED BRONCHODILATORS D/C ASA DR GUIDRY Problem List - Problems (1) CVA (cerebral vascular accident) Code(s): I63.9 - CEREBRAL INFARCTION, UNSPECIFIED Qualifiers: CVA mechanism: unspecified Qualified Code(s): I63.9 - Cerebral infarction, unspecified; I63.9 - Cerebral infarction, unspecified; I63.9 - Cerebral infarction, unspecified; I63.9 - Cerebral infarction, unspecified (2) Hypertension Code(s): I10 - ESSENTIAL (PRIMARY) HYPERTENSION (3) Lipidemia Code(s): E78.5 - HYPERLIPIDEMIA, UNSPECIFIED (4) Chest pain Code(s): R07.9 - CHEST PAIN, UNSPECIFIED (5) Methadone maintenance therapy patient Code(s): F11.20 - OPIOID DEPENDENCE, UNCOMPLICATED (6) Unsteady gait Code(s): R26.81 - UNSTEADINESS ON FEET (7) COPD (chronic obstructive pulmonary disease) case management patient Code(s): [id number] - (8) COPD (chronic obstructive pulmonary disease) Code(s): J44.9 - CHRONIC OBSTRUCTIVE PULMONARY DISEASE, UNSPECIFIED
[2017-03-24 11:51] VITALS: PULSE 67
--- NOTE | 2017-03-24 12:39 | DS ---
Physical Examination Vital Signs: Vital Signs Temperature 98.2 F 03/24/17 09:00 Pulse Rate 67 03/24/17 10:20 Respiratory Rate 16 03/24/17 09:00 Blood Pressure 116/68 03/24/17 09:00 O2 Sat by Pulse Oximetry (%) 93 L 03/24/17 10:20 Findings/Remarks: PATIENT HAS FULL CAPACITY FOR DECISION MAKING. HE HAS REFUSED ANY SURGICAL INTERVENTION, OR CHEMOTHERAPY. "I JUST WANT TO BE COMFORTABLE" Constitutional: Yes: Mild Distress Eyes: Yes: WNL HENT: Yes: WNL Neck: Yes: WNL Cardiovascular: Yes: WNL Respiratory: Yes: Cough, On Nasal O2 Gastrointestinal: Yes: WNL Renal/: Yes: WNL Musculoskeletal: Yes: WNL Extremities: Yes: WNL Edema: No Peripheral Pulses WNL: Yes Integumentary: Yes: WNL Wound/Incision: Yes: Clean/Dry Neurological: Yes: Pre-Existing Deficit ...Motor Strength: LLE, RLE Psychiatric: Yes: Other Labs: CBC, BMP 03/24/17 05:10 03/24/17 05:10 Discharge Summary Reason For Visit: CVA Current Active Problems Brain malignancy (Acute) COPD (chronic obstructive pulmonary disease) (Acute) COPD (chronic obstructive pulmonary disease) case management patient (Acute) CVA (cerebral vascular accident) (Acute) Hypertension (Acute) Lipidemia (Acute) Lung cancer associated cerebellar ataxia (Acute) Lung malignancy (Acute) Lung mass (Acute) Methadone maintenance therapy patient (Acute) Unsteady gait (Acute) Procedures: Principal: MRI BRAIN Other Procedures: CT CHEST AND BRAIN Hospital Course: PATIENT WAS WORKED UP FOR ATAXIA, FOUND TO HAVE LIKELY LUNG AND BRAIN NEOPLASM AND REFUSING SURGICAL INTERVENTIONS AND REFUSING CHEMOTHERAPY. HE ONLY WANTS COMFORT CARE. Condition: Good - Instructions Diet, Activity, Other Instructions: GROUND WITH THIN LIQUIDS Referrals: Cee Carmona MD [Primary Care Provider] - Disposition[facility] - Home Medications Comprehensive Discharge Medication List: Ambulatory Orders Aspirin [ASA -] 81 mg PO DAILY 01/08/17 Atorvastatin Ca [Lipitor] 40 mg PO HS 01/08/17 Loratadine 10 mg PO DAILY 01/08/17 Methadone [Dolophine -] 165 mg PO DAILY 01/08/17 Methimazole 5 mg PO DAILY 01/08/17 Montelukast Na [Singulair -] 10 mg PO HS 01/08/17 Omeprazole 20 mg PO DAILY 01/08/17
[2017-03-24] MEDS ORDERED: DEXAMETHASONE 4 MG TABLET (FP) PO SCH (14:45)
--- NOTE | 2017-03-24 17:04 | CONS ---
DATE OF CONSULTATION: 03/24/2017 REFERRING PHYSICIAN: Pauline Bernard MD REASON FOR CONSULTATION: Probable lung cancer with brain metastasis. HISTORY OF PRESENT ILLNESS: The patient is a 66-year-old gentleman who presented with nausea, headache, and unsteady gait for 1 week. He has increased difficulty ambulating secondary to lower extremity weakness. His MRI of the brain showed a 3.5-cm right cerebellar mass associated with edema and compression of the fourth ventricle. A CT of the chest showed a right upper lobe lung mass associated with mediastinal lymphadenopathy. He has been started on Decadron. He has declined neurosurgical interventions. We are asked to evaluate for a role for radiation therapy. PAST MEDICAL HISTORY: Osteoarthritis, hypertension, hyperlipidemia, COPD, GERD, hypothyroidism. No history of radiation therapy or collagen vascular disease. ALLERGIES: No known drug allergies. CURRENT MEDICATIONS: Decadron 4 mg q.6, Keppra, methimazole, albuterol, Atrovent nebulizer, Colace, milk of magnesia p.r.n., Lipitor, Singulair, baby aspirin discontinued, methadone, Protonix. SOCIAL HISTORY: He lives alone. 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 Retired software engineering supervisor. FAMILY HISTORY: Denies history of malignancy. REVIEW OF SYSTEMS: Reports inability to ambulate and mild headache, dyspnea on exertion, chest pain intermittently with a dry cough. PHYSICAL EXAMINATION: General: A chronically ill-appearing male in no acute distress, lying in the hospital bed. Vital Signs: Temperature 98.2, blood pressure 116/68, pulse 62. HEENT: Disheveled. Moist mucous membranes. Anicteric sclerae. Clear oral cavity. Neck: No adenopathy. Chest: Decreased breath sounds in the right. No wheezes, rales, or rhonchi. Cardiovascular: Regular. Abdomen: Obese, nontender, nondistended. Extremities: No edema. Musculoskeletal: No spine or CVA tenderness. Neurologic: Alert and oriented. Cranial nerves 2-12 are intact. Sensation to light touch is intact, no sensory level. Motor: No pronator drift and 4/5 in the bilateral lower extremity, 5/5 in the bilateral upper extremity. Coordination: Finger to nose intact. Gait is not tested. RADIOLOGIC DATA: Brain MRI and CT chest as noted above. LABORATORY DATA: WBC 6.1, hemoglobin 13.3, platelets 277,000. Electrolytes within normal limits. BUN 9, creatinine 0.5. Calcium 8.5. Liver function tests within normal limits. Albumin 2.5. 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 He has been started on Decadron and seen by the neurology and neurosurgery services. Aspirin has been discontinued, and a lung biopsy is planned. It seems that he is refusing further intervention. We discussed a role for radiation therapy for palliation and to minimize neurologic sequelae of local progression of his brain metastasis that could cause further deterioration of his quality of life and neurologic . We discussed the need for a biopsy to confirm the diagnosis of metastatic malignancy. If a lung biopsy is feasible and he is agreeable, would recommend proceeding if he is interested in having radiation therapy. Otherwise, supportive care with steroids alone would be a reasonable option if he elects hospice/palliative care/comfort measures. He will decide if he wishes to have any treatment for this advanced malignancy with probably a poor prognosis. At this time, he is electing conservative measures and wishes to be discharged. If he changes his mind and a biopsy is pursued, we will follow and further recommendations for palliative radiation treatment will follow. Thank you for the courtesy of this consultation. LUL LO M.D. KARRI/[id number] MTDD
== END 2017-03-24 15:16 | DRG 180 ==
LOC: JER 10:34 → JERBED 15:28 → J4W 16:55
PROVIDERS: ADMIT Family Medicine; ATTEND Family Medicine
DX: C34.90 Malignant neoplasm of unspecified part of unspecified bronchus or lung (principal); I63.9 Cerebral infarction, unspecified; G93.6 Cerebral edema; C79.31 Secondary malignant neoplasm of brain; G32.81 Cerebellar ataxia in diseases classified elsewhere; F11.20 Opioid dependence, uncomplicated; J44.9 Chronic obstructive pulmonary disease, unspecified; E78.5 Hyperlipidemia, unspecified; R26.81 Unsteadiness on feet; I10 Essential (primary) hypertension; R07.9 Chest pain, unspecified; K21.9 Gastro-esophageal reflux disease without esophagitis; F17.210 Nicotine dependence, cigarettes, uncomplicated; R29.701 NIHSS score 1
CPT/HCPCS: 36415; 70450-TC; 70544-TC; 70547-TC; 70551-TC; 70552-TC; 71010-TC; 71250-TC; 74230-TC; 80053; 80061; 81003; 81015; 82140; 82553; 82607; 83036; 83721; 83735; 83880; 84100; 84425; 84443; 84484; 85025; 85027; 85384; 85610; 85730; 87086; 90688; 92611-GN; 93005; 93010; 94640; 97116-GP; 97161-GP; 99285-25